=== PATIENT | male | born 1980 | race Caucasian/White ===

== ENCOUNTER 2024-10-15 05:59 | Emergency (ER) | payer OTHER, SELFPAY ==
[2024-10-15] VITALS (7 sets, daily range): BP systolic 131–151; BP diastolic 76–90; PULSE 64–71; RESP 18; TEMP 36.5–36.7; O2SAT 97–99; BMI 35.3
--- NOTE | 2024-10-15 | ECG_ITS ---
Test Reason : CP Blood Pressure : */* mmHG Vent. Rate : 61 BPM Atrial Rate : 61 BPM P-R Int : 178 ms QRS Dur : 86 ms QT Int : 406 ms P-R-T Axes : 54 16 11 degrees QTcB Int : 408 ms Normal sinus rhythm Normal ECG No previous ECGs available Referred By: Generic ED Physician Electronically Signed By: KEN BURDICK
--- NOTE | 2024-10-15 06:20 | PC.NURSE ---
Pt A&OX3, presented to ED for chest pain that radiates to the left shoulder, EKG done by triage tech, placed on quality assurance monitor chassis NSR, HR 67, VSS, no acute distress noted at this time, family at the bedside, call light given for safety
[2024-10-15 06:35] LABS: MANUAL DIFF FLAG NO
[2024-10-15 06:36] LABS: Basophils Absolute Auto 0.1 X10*3/uL (0.0-0.2); Basophils Percent Auto 0.7 % (0-2); Eosinophils Absolute Auto 0.2 X10*3/uL (0.0-0.4); Eosinophils Percent Auto 2.9 % (0-4); Hematocrit 41.9 % (42.0-52.0); Hemoglobin 14.7 g/dl (14.0-18.0); Imm Gran Abs Auto 0.01 X10*3/uL (0.00-0.03); Imm Gran Pct Auto 0.1 % (0.0-0.4); Lymphocytes Percent Auto 43.3 % (20-40); Mean Corpuscular HGB Conc 35.1 g/dl (31.0-36.0); Mean Corpuscular Hemoglobin 29.1 pg (27.0-33.0); Mean Platelet Volume 9.5 fL (9.4-12.4); Monocytes Absolute Auto 0.5 X10*3/uL (0.1-1.2); Monocytes Percent Auto 6.7 % (2-11); Neutrophils Absolute Auto 3.2 x10*3/uL (2.0-8.3); Neutrophils Percent Auto 46.3 % (45-73); Platelet Count 264 X10*3/uL (160-400); Red Blood Count 5.05 X10*6/uL (4.60-5.80); Red Cell Distribution Width 12.4 % (11.0-16.0)
[2024-10-15 06:51] LABS: Alanine Aminotransferase 71 U/L (0-40); Albumin Level 4.6 g/dL (3.5-5.0); Alkaline Phosphatase 102 U/L (39-117); Anion Gap 12 (12-20); Aspartate Amino Transferase 40 U/L (5-37); Bilirubin Total 0.5 mg/dL (0.0-1.0); Blood Urea Nitrogen 14 mg/dL (9-16); Calcium 9.7 mg/dL (8.4-10.2); Carbon Dioxide 22 mmol/L (22-29); Chloride 108 mmol/L (96-108); Creatinine Clr Calc Pharmacy 158.8; Estimated Glomerular Filt Rate > 60; Glucose Random 107 mg/dL (60-115); Potassium 4.4 mmol/L (3.3-5.1); Sodium 138 mmol/L (135-145); Total Protein 7.3 g/dL (6.5-8.0)
[2024-10-15 07:06] LABS: Troponin-I High Sensitivity < 2.7 ng/L (<3.5-35.0)
--- NOTE | 2024-10-15 07:21 | ED_ITS ---
HPI - Chest Pain General Chief Complaint: Chest Pain Stated Complaint: CP Time Seen by Provider: 10/15/24 07:13 Source: patient and family Mode of arrival: ambulatory Limitations: no limitations History of Present Illness ED Provider: DR. Lind HPI narrative: 44-year-old male came in for evaluation of chest pain that is started about 05:15 when he woke up from sleep, patient describes the pain as tightness and mid chest radiating to the left shoulder while he was at rest, patient took his blood pressure and was high called his PCP advised him to come to the ED for further evaluation. 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 Three weeks ago travel to [place] no lower extremity swelling or tenderness. No fever, no chills. During the exam patient still have 1/10 chest pain patient was given nitro and aspirin And will re-evaluate him later. Related Data Allergies Allergy/AdvReac Type Severity Reaction Status Date / Time environmental allergies Allergy Sneezing Verified 10/15/24 06:08 nut - unspecified Allergy Hives Verified 10/15/24 06:08 Review of Systems 2 Review of Systems: All other systems are reviewed and are negative Constitutional: Reports as per HPI and Reports no additional constitutional complaints Eyes: Reports as per HPI and Reports no additional eye complaints Reports system reviewed and no additional complaints, except as documented Cardiovascular: Reports as per HPI and Reports no additional cardiovascular complaints Respiratory: Reports as per HPI and Reports no additional respiratory complaints Gastrointestinal: Reports as per HPI and Reports no additional gastrointestinal complaints Genitourinary: Reports no additional female genitourinary complaints Musculoskeletal: Reports no additional musculoskeletal complaints Skin/Breast: Reports system reviewed and no additional complaints, except as docu Psychiatric: Reports no additional psychiatric complaints Endocrine: Reports no additional endocrine complaints Hematologic/Lymphatic: Reports no additional hematologic/lymphatic complaints Allergic/Immunologic: Reports no additional allergic/immunologic complaints Reports system reviewed and no additional complaints, except as documented and Reports Abnormal speech present [facility] Social History Social History Smoked in Last 30 Days: No Use of substances other than those prescribed or required for medical reasons: No Advance Directives: No Advance Directives Information Provided: Yes Physical Exam 2 Vital Signs: Vital Signs: Last Vital Signs Temp 98.0 F 10/15/24 07:01 Pulse 67 10/15/24 08:44 Resp 18 10/15/24 07:38 BP 131/81 10/15/24 08:44 Pulse Ox 97 10/15/24 07:01 O2 Del Method Room Air 10/15/24 07:01 BMI result Body Mass Index 35.3 Vital signs have been reviewed and appear to be correct. Blood pressure elevated. Heart rate normal. Respiratory rate normal. Temperature normal. Oxygen saturation normal. Appearance: Alert. Oriented X3. No acute distress. Head: Normal external exam. Normocephalic. Atraumatic. No Britt signs noted. No raccoon eyes noted Eyes: PERRLA. EOMI. Conjunctiva and sclera normal. Eyelids normal. ENT: TM's Normal. Pharynx normal. Uvula midline. Moist mucous membranes. No trismus noted. No drooling noted. No muffled voice noted. Neck: Normal inspection. Neck supple. FROM. No adenopathy. Thyroid Normal. No meningeal signs. No neck mass noted. CVS: Normal heart rate and rhythm. Heart sound normal. No murmurs noted. Pulses normal throughout. Respiratory: No respiratory distress. Painless inspiration. Breath sounds normal. No wheezes/rales/rhonchi noted. Chest nontender. No accessory muscle usage noted or decreased air movement noted. Abdomen: Soft and nontender. Bowel sounds normal in all 4 quadrants. No distention noted. No organomegaly noted. No visible injury noted. Back: No CVA tenderness. Full range of motion noted. Skin: Skin warm and dry. Normal skin color. Normal skin turgor. No rashes/lesions/lacerations noted. Extremities: No lower extremity edema. Extremities exhibit normal range of motion. Extremities nontender. Neuro: Oriented X 3. Cranial nerve exam: II-XII are grossly intact No motor deficit. No sensory deficit. Reflexes normal. 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 Blood pressure is 131/81 patient will have a soon follow-up with his PCP in regard follow-up on his blood pressure. Patient is stable to be discharged at this point. Time: 10:05 Medications Administered Discontinued Medications Generic Name Dose Route Start Last Admin Trade Name Antonietta PRN Reason Stop Dose Admin Aspirin 325 mg 10/15/24 07:20 10/15/24 07:32 Aspirin Enteric Coated 325 Mg Tablet.Dr ARMSTRONG 10/15/24 07:21 325 mg ONCE ONE Administration Nitroglycerin 0.4 mg 10/15/24 07:20 10/15/24 07:33 Nitroglycerin 0.4 Mg Tab.Subl SUBLINGUAL 10/15/24 07:21 0.4 mg ONCE ONE Administration Medical Decision Making Differential Diagnosis Differential Diagnoses: The differential diagnosis associated with the presentation includes ( Essential hypertension, emergent hypertension, ACS, pulmonary embolism, electrolyte derangement, severe anemia, anxiety.) Admission/Observation Consideration of admission/observation: Escalation of care including admission/observation considered Lab Data MDM Lab Attestation statement: I reviewed the patient's lab results. 10/15/24 06:28 10/15/24 06:28 Labs: Lab Results 10/15/24 10/15/24 10/15/24 Range/Units 06:28 07:49 09:03 WBC 7.0 (4.8-10.8) X10*3/uL RBC 5.05 (4.60-5.80) X10*6/uL Hgb 14.7 (14.0-18.0) g/dl Hct 41.9 L (42.0-52.0) % MCV 83.0 (80.0-98.0) fL MCH 29.1 (27.0-33.0) pg MCHC 35.1 (31.0-36.0) g/dl RDW 12.4 (11.0-16.0) % Plt Count 264 (160-400) X10*3/uL MPV 9.5 (9.4-12.4) fL Immature Gran % (Auto) 0.1 (0.0-0.4) % Neut % (Auto) 46.3 (45-73) % Lymph % (Auto) 43.3 H (20-40) % [place] % (Auto) 6.7 (2-11) % Eos % (Auto) 2.9 (0-4) % Baso % (Auto) 0.7 (0-2) % Lymph # (Auto) 3.0 (1.2-4.9) X10*3/uL [place] # (Auto) 0.5 (0.1-1.2) X10*3/uL Eos # (Auto) 0.2 (0.0-0.4) X10*3/uL Baso # (Auto) 0.1 (0.0-0.2) X10*3/uL Abs Immat Gran (auto) 0.01 (0.00-0.03) X10*3/uL Absolute Neuts (auto) 3.2 (2.0-8.3) x10*3/uL Absolute Nucleated RBC 0.000 (0.0-0.012) X10*3/uL Nucleated RBC % (auto) 0.0 (0.0-0.2) /100WBC D-Dimer High Sensitivty < 150 NG/ML Sodium 138 (135-145) mmol/L Potassium 4.4 (3.3-5.1) mmol/L Chloride 108 (96-108) mmol/L Carbon Dioxide 22 (22-29) mmol/L Anion Gap 12 (12-20) BUN 14 (9-16) mg/dL Creatinine 0.75 (0.5-1.4) mg/dL Estim Creat Clear Calc 158.8 Estimated GFR > 60 Random Glucose 107 (60-115) mg/dL Calcium 9.7 (8.4-10.2) mg/dL Total Bilirubin 0.5 (0.0-1.0) mg/dL AST 40 H (5-37) U/L ALT 71 H (0-40) U/L Alkaline Phosphatase 102 (39-117) U/L Troponin I High Sens < 2.7 < 2.7 (<3.5-35.0) ng/L Total Protein 7.3 (6.5-8.0) g/dL Albumin 4.6 (3.5-5.0) g/dL Independent Interpretation I performed an independent interpretation of an: EKG ( Normal sinus rhythm at 61, normal intervals, no ST-T changes, no EKG to compare.) and Plain X-Ray Discharge Plan Discharge Clinical Impression: Atypical chest pain, Essential hypertension Patient Disposition: Home, Self-Care Instructions: Chest Pain (ED) Print Language: Finnish
[2024-10-15] MEDS: Aspirin Enteric Coated 325 MG TABLET.DR PO (07:32)
[2024-10-15] MEDS: Nitroglycerin 0.4 MG TAB.SUBL SUBLINGUAL (07:33)
[2024-10-15 08:05] LABS: D Dimer High Sensitivity < 150 NG/ML
[2024-10-15 09:43] LABS: Troponin-I High Sensitivity < 2.7 ng/L (<3.5-35.0)
== END 2024-10-15 10:18 | disposition home or self-care (01) ==
PROVIDERS: Emergency Provider Emergency Medicine
DX: R07.89 Other chest pain (principal); M25.512 Pain in left shoulder; I10 Essential (primary) hypertension; Z79.899 Other long term (current) drug therapy
CPT/HCPCS: 36415; 80053; 84484; 85025; 85379; 93005; 99283; 99285

== ENCOUNTER → 2024-10-15 05:59 | Outpatient (BNV) | payer OTHER, SELFPAY | PROVIDERS: Emergency Provider Emergency Medicine; Visit Provider Internal Medicine | DX: R07.89 Other chest pain (principal) | CPT/HCPCS: 93010 ==

== ENCOUNTER 2025-03-01 17:28 | Emergency (ER) | payer OTHER, SELFPAY ==
--- NOTE | ~2025-03-01 | CT_ITS ---
CLINICAL HISTORY: R flank pain Exam: Unenhanced CT abdomen and pelvis with multiplanar reformats. Comparison: None. Findings: CT abdomen: Lung bases are clear. Liver is free of gross focal lesions and ductal dilatation. Gallbladder reveals cholelithiasis, without CT evidence of cholecystitis. Spleen appears unremarkable. Pancreas and adrenal glands appear unremarkable. Right kidney reveals mild hydronephrosis, down to the level of a 4 mm proximal right ureteral calculus (4; 453 and 6; 44). Additional punctate nonobstructing right renal calculus is present (4; 430). Left kidney reveals a heterogeneous solid-appearing and partially calcified upper pole lesion measuring up to 7.9 cm AP dimension (4; 357), and 5.8 cm craniocaudad dimension (6; 58). Findings concerning for solid mass such as renal cell carcinoma. No free intraperitoneal fluid or retroperitoneal masses or adenopathy. Abdominal aorta is normal caliber. Bowel loops reveal no abnormal wall thickening or distention. Minimal colonic diverticulosis is present, without CT evidence of diverticulitis. The appendix is unremarkable. CT pelvis: Prostate gland measures 4.3 cm transverse dimension. Urinary bladder is free of gross filling defects. No pelvic masses, fluid or adenopathy. Osseous structures reveal no destructive osseous lesions. Impression: 1. Mild right hydroureteronephrosis down to the level of a 4 mm proximal right ureteral calculus. Additional nonobstructing right renal calculus. 2. Large heterogeneous left renal lesion concerning for solid mass as described above, measuring up to 7.5 cm maximal dimension. Consider further characterization with nonemergent MRI or renal mass protocol CT. This document has been electronically signed by: Kristian Anderson MD on 03/01/2025 18:53:42
[2025-03-01 17:44] VITALS: BP 152/89; PULSE 84; RESP 16; TEMP 36.4; O2SAT 99; BMI 36.2
--- NOTE | 2025-03-01 17:45 | ED.GENADULT ---
HPI - General Adult General Chief complaint: Abdominal Pain Stated complaint: acute pain rt lower abd, nauseos, vomitting Time Seen by Provider: 03/01/25 18:30 Source: patient Mode of arrival: ambulatory Limitations: no limitations History of Present Illness ED Provider: Aniceto Mack HPI narrative: 44 yold male presents to the ED for right sided abdominal pain radiating to the back with nausea and vomitting that began this morning. patient denies any fever, chills, dysuria, or hematuria. Related Data Previous Rx's ?Medication ?Instructions ?Recorded naproxen 500 mg tablet 500 mg PO BID PRN pain #14 tabs 03/01/25 oxycodone 5 mg capsule 5 mg PO TID PRN pain #9 caps 03/01/25 tamsulosin 0.4 mg capsule (Flomax) 0.4 mg PO DAILY #7 caps 03/01/25 Allergies Allergy/AdvReac Type Severity Reaction Status Date / Time environmental allergies Allergy Sneezing Verified 03/01/25 17:48 nut - unspecified Allergy Hives Verified 03/01/25 17:48 Review of Systems Review of Systems: RIght sided abdominal pain/back pain Yes all other systems are reviewed and are negative Physical Exam ED Vital Signs: Vital Signs - 24 hr 03/01/25 17:44 03/01/25 19:01 Temperature 97.5 F 98.1 F Pulse Rate 84 88 Respiratory Rate 16 Blood Pressure 152/89 H 141/88 H Pulse Oximetry 99 95 Oxygen Delivery Method Room Air Room Air BMI result Body Mass Index 36.2 Const General: cooperative, healthy appearing, comfortable, no acute distress, well developed, alert, awake and Physically active Orientation/consciousness: patient oriented x3 HENMT Head: Yes normal to inspection, Yes No palpable skull fracture present, Yes normocephalic and Yes atraumatic Eyes General: appearance normal, both eyes and all related structures Neck Neck: Yes normal visual inspection, Yes full ROM, Yes no lymphadenopathy, Yes no meningeal signs, Yes trachea midline, Yes supple, No anterior neck swelling and No tender Chest Chest palpation & inspection: normal inspection of the chest and normal palpation of entire chest wall Resp Effort & Inspection: normal respiratory effort and able to speak in complete sentences Auscultation: clear to auscultation bilaterally Cardio Jugular venous distension: no JVD Heart sounds: S1 normal heart sound present and S2 normal heart sound present GI Palpation (GI): Tenderness to palpation present (GI) in the RLQ and in the RUQ, no guarding and not rigid General: Yes CVA tenderness (RIght) Back/Spine/Pelvis Back: CVA tenderness (RIght) and No back tenderness Skin General skin exam: no rashes or lesions noted, elasticity normal and turgor normal Neuro General: patient oriented x3, gait normal, tone normal, moves all extremities, Normal light touch and pain sensation, no meningeal signs, no focal motor deficits, CN's II-XI intact bilaterally and normal sensation to monofilament Extrem General: Yes normal to inspection, Yes full ROM and Yes capillary refill normal Psych Appearance: grossly normal, well kempt and not disheveled Course Course Course Narrative: Rapid medical examination performed in triage by Pretty Liang PA-C: Patient is a 44 year old assigned male at presenting to the emergency department with right lower quadrant abdominal pain. Detailed physical exam and review of systems are deferred to the rework machine operator. Labs and imaging ordered. Patient placed back in the waiting room pending room availability and results. Medications Administered Discontinued Medications Generic Name Dose Route Start Last Admin Trade Name Freq PRN Reason Stop Dose Admin Sodium Chloride 1,000 mls @ 999 mls/hr 03/01/25 19:22 03/01/25 20:36 Ns IV 03/01/25 20:22 Infused .Q1H1M STA Infusion Ketorolac Tromethamine 30 mg 03/01/25 19:22 03/01/25 19:35 Ketorolac Tromethamine 30 Mg/Ml Vial IVPUSH 03/01/25 19:23 30 mg ONCE ONE Administration Morphine Sulfate 4 mg 03/01/25 19:42 03/01/25 20:00 Morphine Sulfate 4 Mg/Ml Cartridge IVPUSH 03/01/25 19:43 Not Given ONCE ONE Protocol Medical Decision Making Medical Decision Making MDM Narrative: 44-year-old male presents to ED for right-sided abdominal pain starting today with nausea and vomiting. Abdominal CT scan shows kidney stones with hydronephrosis. Cat scan also shows gallstone without cholecystitis. Cat scan also shows right kidney mass. Patient's kidney functions normal. Urine negative for UTI. Kidney stones fall mm she will be able to passed. Patient informed to follow-up with urology. Patient explained worrisome signs and informed to return to the ED immediately. Not suspecting urosepsis, acute kidney injury, cholangiocarcinoma, any other life-threatening etiology. Patient made aware of renal mass and necessary follow up. Differential Diagnosis Differential Diagnoses: The differential diagnosis associated with the presentation includes (Kidney stones, appendicitis, cholecystitis) Admission/Observation Consideration of admission/observation: Escalation of care including admission/observation considered Lab Data MDM Lab Attestation statement: I reviewed the patient's lab results. 03/01/25 17:54 03/01/25 17:54 Labs: Lab Results 03/01/25 03/01/25 Range/Units 17:54 19:39 WBC 10.5 (4.8-10.8) X10*3/uL RBC 5.25 (4.60-5.80) X10*6/uL Hgb 15.2 (14.0-18.0) g/dl Hct 45.5 (42.0-52.0) % MCV 86.7 (80.0-98.0) fL MCH 29.0 (27.0-33.0) pg MCHC 33.4 (31.0-36.0) g/dl RDW 12.4 (11.0-16.0) % Plt Count 283 (160-400) X10*3/uL MPV 9.2 L (9.4-12.4) fL Immature Gran % (Auto) 0.4 (0.0-0.4) % Neut % (Auto) 70.8 (45-73) % Lymph % (Auto) 21.5 (20-40) % [place] % (Auto) 5.1 (2-11) % Eos % (Auto) 1.6 (0-4) % Baso % (Auto) 0.6 (0-2) % Lymph # (Auto) 2.3 (1.2-4.9) X10*3/uL [place] # (Auto) 0.5 (0.1-1.2) X10*3/uL Eos # (Auto) 0.2 (0.0-0.4) X10*3/uL Baso # (Auto) 0.1 (0.0-0.2) X10*3/uL Abs Immat Gran (auto) 0.04 H (0.00-0.03) X10*3/uL Absolute Neuts (auto) 7.4 (2.0-8.3) x10*3/uL Absolute Nucleated RBC 0.000 (0.0-0.012) X10*3/uL Nucleated RBC % (auto) 0.0 (0.0-0.2) /100WBC Sodium 143 (135-145) mmol/L Potassium 4.4 (3.3-5.1) mmol/L Chloride 107 (96-108) mmol/L Carbon Dioxide 25 (22-29) mmol/L Anion Gap 15 (12-20) BUN 9 (9-16) mg/dL Creatinine 0.80 (0.5-1.4) mg/dL Estim Creat Clear Calc 150.8 Estimated GFR > 60 Random Glucose 100 (60-115) mg/dL Calcium 10.5 H D (8.4-10.2) mg/dL Magnesium 2.2 (1.6-2.6) mg/dL Total Bilirubin 0.3 (0.0-1.0) mg/dL AST 40 H (5-37) U/L ALT 62 H (0-40) U/L Alkaline Phosphatase 110 (39-117) U/L Total Protein 7.9 (6.5-8.0) g/dL Albumin 4.9 (3.5-5.0) g/dL Urine Color Yellow Urine Appearance Clear Urine pH 6.0 (5.0-9.0) Ur Specific [place] 1.015 (1.005-1.025) Urine Protein Negative (Neg-Trace) mg/dL Urine Glucose (UA) Negative (Negative) mg/dL Urine Ketones Negative (Negative) mg/dL Urine Blood Moderate (2+) H (Negative) Urine Nitrite Negative (Negative) Ur Leukocyte Esterase Negative (Negative) Urine RBC >20 H (0-2) /HPF Urine WBC 0-5 (0-5) /HPF Ur Squamous Epith Cells 0-2 (0-2) /HPF Urine Bacteria None Seen (None Seen) Hyaline Casts 0-2 (0-2) /LPF Independent Interpretation I performed an independent interpretation of an: CT Scan Radiology Impression Discussion of test interpretation with radiology: I have reviewed the radiologist's reading. Independent Historian Clinical information obtained from an independent historian. History obtained from or confirmed by: Other (Patient) Prescription Management I considered prescription management with: Pain Medication Discharge Plan Discharge Clinical Impression: Calculus, ureter, Gallstones Patient Disposition: Home, Self-Care Instructions: Gallstones (ED), Renal Colic (ED), Ureteral Stones (ED) Additional Instructions: Recommend follow up with primary care provider. Return to the ED immediately for any testicular pain, nausea, vomiting, abdominal pain, fever, chills, flank pain, blood in urine, weakness, dizziness, or any other concerning symptoms. Ordering Physician: Pretty Liang Date of Service: 03/01/25 Procedure(s): CT abdomen pelvis wo IV con Accession Number(s): [id number] cc: Pretty Liang; TOBIAS HALLMAN MD~ Report Number: [id number]: Total DLP = 928.00 mGy-cm Reason for Exam: R flank pain CLINICAL HISTORY: R flank pain Exam: Unenhanced CT abdomen and pelvis with multiplanar reformats. Comparison: None. Findings: CT abdomen: Lung bases are clear. Liver is free of gross focal lesions and ductal dilatation. Gallbladder reveals cholelithiasis, without CT evidence of cholecystitis. Spleen appears unremarkable. Pancreas and adrenal glands appear unremarkable. Right kidney reveals mild hydronephrosis, down to the level of a 4 mm proximal right ureteral calculus (4; 453 and 6; 44). Additional punctate nonobstructing right renal calculus is present (4; 430). Left kidney reveals a heterogeneous solid-appearing and partially calcified upper pole lesion measuring up to 7.9 cm AP dimension (4; 357), and 5.8 cm craniocaudad dimension (6; 58). Findings concerning for solid mass such as renal cell carcinoma. No free intraperitoneal fluid or retroperitoneal masses or adenopathy. Abdominal aorta is normal caliber. Bowel loops reveal no abnormal wall thickening or distention. Minimal colonic diverticulosis is present, without CT evidence of diverticulitis. The appendix is unremarkable. CT pelvis: Prostate gland measures 4.3 cm transverse dimension. Urinary bladder is free of gross filling defects. No pelvic masses, fluid or adenopathy. Osseous structures reveal no destructive osseous lesions. Impression: 1. Mild right hydroureteronephrosis down to the level of a 4 mm proximal right ureteral calculus. Additional nonobstructing right renal calculus. 2. Large heterogeneous left renal lesion concerning for solid mass as described above, measuring up to 7.5 cm maximal dimension. Consider further characterization with nonemergent MRI or renal mass protocol CT. This document has been electronically signed by: Kristian Anderson MD on 03/01/2025 18:53:42 Prescriptions: New tamsulosin [Flomax] 0.4 mg capsule 0.4 mg PO DAILY Qty: 7 0RF naproxen 500 mg tablet 500 mg PO BID PRN (Reason: pain) Qty: 14 0RF oxycodone 5 mg capsule 5 mg PO TID PRN (Reason: pain) Qty: 9 0RF Rx Instructions: Partial Fill upon patient request. side effect is drowsiness. Do not take at work or while driving Referrals: [facility] [place] General Surgeons [Provider Group, General Surgery] - 2 days Referral Note: Gallstone Clinical Impression: Gallstones [facility] [place] Urology Services [Provider Group, Urology] - 2 days Referral Note: Ureter stone Clinical Impression: Calculus, ureter Tobias Hallman MD [Primary Care Provider, Internal Medicine] - 2 days Referral Note: Kidney stones, gallstones, Lesion on right kidney Clinical Impression: Calculus, ureter; Gallstones Stand Alone Forms: Work/School Release Interventions: ED Discharge Assessment Last Done: 03/01/25 21:04 Discharge Date/Time: 03/01/25 21:06 Print Language: Mongolian
[2025-03-01 17:58] LABS: MANUAL DIFF FLAG NO
[2025-03-01 18:07] LABS: Hematocrit 45.5 % (42.0-52.0); Hemoglobin 15.2 g/dl (14.0-18.0); Imm Gran Abs Auto 0.04 X10*3/uL (0.00-0.03); Imm Gran Pct Auto 0.4 % (0.0-0.4); Lymphocytes Absolute Auto 2.3 X10*3/uL (1.2-4.9); Mean Corpuscular HGB Conc 33.4 g/dl (31.0-36.0); Mean Corpuscular Hemoglobin 29.0 pg (27.0-33.0); Mean Corpuscular Volume 86.7 fL (80.0-98.0); NRBC Abs Auto 0.000 X10*3/uL (0.0-0.012); NRBC Pct Auto 0.0 /100WBC (0.0-0.2); Platelet Count 283 X10*3/uL (160-400); Red Blood Count 5.25 X10*6/uL (4.60-5.80); White Blood Count 10.5 X10*3/uL (4.8-10.8)
[2025-03-01 18:14] LABS: Alanine Aminotransferase 62 U/L (0-40); Albumin Level 4.9 g/dL (3.5-5.0); Alkaline Phosphatase 110 U/L (39-117); Anion Gap 15 (12-20); Aspartate Amino Transferase 40 U/L (5-37); Blood Urea Nitrogen 9 mg/dL (9-16); Calcium 10.5 mg/dL (8.4-10.2); Carbon Dioxide 25 mmol/L (22-29); Chloride 107 mmol/L (96-108); Creatinine Clr Calc Pharmacy 150.8; Estimated Glomerular Filt Rate > 60; Magnesium 2.2 mg/dL (1.6-2.6); Potassium 4.4 mmol/L (3.3-5.1); Sodium 143 mmol/L (135-145); Total Protein 7.9 g/dL (6.5-8.0)
[2025-03-01 19:01] VITALS: BP 141/88; PULSE 88; TEMP 36.7; O2SAT 95
--- OUTSIDE RECORDS SUMMARY | 2025-03-01 19:24 | XMS_ITS | Clinical Summary ---
Author Organization [facility] Address [address] [place] [phone] Phone Care Team Providers Care Memory Care Program Resident Name Role Phone Geovanny Hallman MD Primary Care Provider Allergies Active Allergy Reactions Criticality Noted Date Comments Peanut 09/13/2023 Other 07/21/2018 Environmental allergies Tree Nut GI Upset,Hives,Itching,Swel ling,Throat Tightness Medium 10/05/2024 Medications omeprazole (PRILOSEC) 20 MG tablet 1 tablet Orally as needed Active loratadine (CLARITIN) 10 mg tablet Take 1 tablet by mouth as needed. Active FLUoxetine (PROZAC) 20 MG capsuleIndicati ons:Suicidal ideation TAKE 1 CAPSULE BY MOUTH EVERY DAY 90 capsule 3 05/18/2022 Active Active Problems Problem Noted Date Diagnosed Date Elevated BP without diagnosis of hypertension Assessment & Plan (01/24/2025 9:37 PM EDT): He has been taking decongestants which could explain his elevated blood pressure, will monitor. Assessment & Plan (10/08/2024 7:09 PM EDT): We discussed measures to help reduce his blood pressure and will follow up in about 6 weeks. Orders: CBC; Future Comprehensive metabolic panel; Future Hemoglobin A1c; Future Lipid panel; Future TSH with reflex; Future Left knee pain 10/08/2024 Assessment & Plan (10/08/2024 7:09 PM EDT): There is likely a component of overuse injury. Will monitor. Snoring 04/05/2023 Assessment & Plan (04/05/2023 12:34 PM EST): He would prefer to have an in lab sleep study with the hope of a split night test as he is confident that he has sleep apnea. He will discuss this with sleep medicine. Class 1 obesity with body ma ss index (BMI) of 34.0 to 34.9 in adult 07/03/2021 Assessment & Plan (01/24/2025 9:37 PM EDT): He remains very physically active with his work. Will continue to monitor his blood pressure. Assessment & Plan (09/13/2023 3:08 PM EDT): Weight has been recently stable, BMI 34.65 based on pt reported current weight. At high risk for severe case of COVID, will treat with Paxlovid - see below. Assessment & Plan (07/03/2021 1:54 PM EDT): He would like to see a book trimmer to discuss his diet. He was given information for Jenny Mccoy and Suzy Torres today. Major depressive disorder with single episode, i n remission 12/13/2020 Assessment & Plan (01/24/2025 9:37 PM EDT): Continue fluoxetine. Assessment & Plan (07/03/2021 1:54 PM EDT): He is doing well on his current dose of fluoxetine. Will maintain there. Discussed that he can remain on this dose for years if he wishes. Resolved Problems Problem Noted Date Diagnosed Date Resolved Date COVID-19 09/13/2023 01/24/2025 Assessment & Plan (09/13/2023 3:07 PM EDT): Positive home COVID antigen test w/ symptoms: head congestion, fever and body aches. At high risk for severe symptoms of COVID given obesity. Immunized for COVID and boosted. Meets criteria for oral antiviral tx, risks/benefits/side effects reviewed. ? High risk for drug-drug interactions w/ Paxlovid. Medication list reviewed, possible slight interaction with fluoxetine but given low dose of SSRI and brief antiviral tx, no adjustments necessary. No history of kidney disease, no dosage adjustment necessary. ? They are not so unwell as to need to go to the ER immediately. No s/sx of hypoxia, no indications at this time for an in-office visit. Reviewed indications for urgent eval/ED visit. Continue supportive care, rest, plenty of oral fluids, cough/deep breathing. Follow-up as needed for worsening symptoms, if fever worsens or persists, or failure to improve. Impacted cerumen of right ear 08/10/2021 04/02/2023 Assessment & Plan (2021 10:21 AM EDT): Continued pressure/muffled sound from right ear with some ringing. Likely secondary to impacted cerumen. Irrigation provided- improved symptoms following. Advised use of debrox on other ear as he has some hard wax there also. Assessment & Plan (08/10/2021 11:21 AM EDT): Suspect fullness secondary to impaction. Red flags reviewed. Irrigation attempted with minimal improvement. Will trial debrox and return in 5 days. Given rx for amox in case of fever or worsening pain in that time. dvised to take full course if started. Encounters Date Type Department Care Team Description 01/20/2025 4:00 PM EDT Office Visit [facility] [address] [place] [address] Dr [place], [place] [id number] Geovanny Hallman MD Encounter for general adult medical examination with abnormal findings (Primary Dx); Elevated BP without diagnosis of hypertension; Class 2 obesity due to excess calories without serious comorbidity with body mass index (BMI) of 37.0 to 37.9 in adult; Major depressive disorder with single episode, in remission from Last 3 Months Immunizations Immunization Administration Dates Next Due COVID-19 (Pre-02/11) Pfizer Vaccine, mRNA, PF ,06/12/2020 INFLUENZA, SPLIT VIRUS, TRIVALENT PF 02/05/2024 INFLUENZA, SPLIT VIRUS, TRIVALENT W/ PRESERVATIV E IM 08/03/2010 Influenza Quadrivalent MDCK Preservative Free IM 01/22/2023 Influenza Trivalent MDCK Preservative Free IM Td (adult),2 Lf Tetanus Toxoid, PF, Adsorbed 12/2019 Family History Medical History Relation Comments CV disease Father Heart attack Father x3, 1st PR befor e 50 Hypertension Father Sleep apnea Father CV disease Maternal Grandmother Heart attack Maternal Grandmother Meniere's disease Mother Diabetes mellitus Paternal Aunt CV disease Paternal Grandfather Diabetes mellitus Paternal Grandfather Heart attack Paternal Grandfather x2 Hypertension Paternal Grandfather Stroke Paternal Grandfather x2 Relation Status Comments Father Maternal Grandmother Mother Paternal Aunt Paternal Grandfather Social History Tobacco Use Types Packs/Day Years Used Date Smoking Tobacco: Never Smokeless Tobacco: Never Tobacco Cessation:Counseling Given: Not Answered Alcohol Use Standard Drinks/Week Comments Yes 0 (1 standard drink = 0.6 oz pur e alcohol) socially/rare Child or Family Care Answer Date Record ed Do you have problems with on e of the following making it difficult for you to work, study, or receive health care? No 01/19/2025 Education Answer Date Recorded Are you interested in help w ith more adult education (for example, completing high school, GED, job training, learning the [place] language, technical skills, or developing parenting skills)? No 01/19/2025 Are you concerned about learning? Not on file 01/19/2025 No 01/19/2025 Yes 01/19/2025 Food Answer Date Recorded Within the past 6 months we worried whether our food would run out before we got money to buy more. Never True 01/19/2025 Within the past 6 months the food we bought just didn't last and we didn't have enough money to get more. Never True Residential Stability Answer Date Recor ded What is your housing situation today? I have bogdan sing 01/19/2025 How many times have you move d in the past 12 months? Zero (I did not move) 01/19/2025 Paying for Meds Answer Date Recorded Do you have trouble paying for medicines? No 01/19/2025 Paying Utility Bills Answer Date Record ed Do you have trouble paying your heating or elect ricity bill? No 01/19/2025 Transportation Answer Date Recorded Has the lack of transportati on kept you from medical appointments or from getting medications? No 01/19/2025 Unemployment Answer Date Recorded Are you currently unemployed or working on a part-time or temporary basis, and looking for work? No 01/19/2025 Digital Access Answer Date Recorded No 01/19/2025 Yes 01/19/2025 Do you have reliable internet access at home? Ye s 01/19/2025 Do you have a device (e.g., phone, tablet, computer) with a working camera? Yes 01/19/2025 Intimate Partner Violence Answer Date R ecorded Denied Basic Needs Not on file 01/19/2025 In the past 12 months have y ou been in a relationship with a person who hurts, threatens, or tries to control you? No 01/19/2025 Worried food would run out Not on file 01/19 In the past 12 months have y ou been in a relationship with a person who hurts, threatens, or tries to control you? 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 Not on file Not on file Not on file Last Filed Vital Signs Vital Sign Reading Time Taken Comments Blood Pressure 124/96 01/20/2025 4:13 PM EDT Pulse 95 01/20/2025 4:10 PM EDT Temperature 36.3 C (97.4 F) 01/20/2025 4:10 PM EDT Respiratory Rate - - Oxygen Saturation 95% 01/20/2025 4:10 PM EDT Inhaled Oxygen Concentration - - Weight 115.4 kg (254 lb 6.4 oz) 01/20/2025 4:10 PM EDT Height 176.5 cm (5' 9.49 ) 04/02/2023 3:48 PM ES T Body Mass Index 37.04 04/02/2023 3:48 PM EST Plan of Treatment Health Maintenance Due Date Last Done Comments HEPATITIS C SCREENING 08/16/1999 HIV ONE-TIME SCREENING (18-65 YEARS) 08/16/1999 DEPRESSION SCREENING 01/19/2026 01/19/2025, 11/02/19 21 SCREENING FOR DIABETES 10/08/2027 10/07/2024, 2024 Adult Td,Tdap Booster 09/28/2029 09/29/2019 LIPID PANEL 10/07/2029 10/07/2024 COVID-19 VACCINE Completed 01/17/2025, , 01/28/2023, Additional history exists INFLUENZA VACCINE Completed 01/17/2025, , 01/22/2023, Additional history exists SMOKING STATUS SCREENING (Once After 26 Yrs) Completed 01/20/2025 HEPATITIS A VACCINES Aged Out No long er eligible based on patient's age to complete this topic HIB VACCINES Aged Out No longer eligi ble based on patient's age to complete this topic MENINGOCOCCAL VACCINES (ACWY) Aged Out No longer eligible based on patient's age to complete this topic MENINGOCOCCAL VACCINES (B) Aged Out N o longer eligible based on patient's age to complete this topic PNEUMOCOCCAL VACCINES (0-49 years) Aged Out No longer eligible based on patient's age to complete this topic Medical Devices Not on file Procedures Procedure Name Priority Date/Time Associated Diagnosis Comments LIPID PANEL Routine 10/07/2024 7:21 AM EDT Elevated BP without diagnosis of hypertension from Last 3 Months or Most Recently Relevant to Health Maintenance Results * (ABNORMAL) Lipid panel (10/07/2024 7:21 AM EDT) HDL 54 mg/dL [facility] Comment: Interpretation <40 mg/dL: Low HDL cholesterol (major risk factor for CHD) Greater than or equal to 60 mg/dL: High HDL cholesterol ( negative risk factor for CHD) HDL - cholesterol is affected by a number of factors, e.g. smoking, excerise, hormones, sex and age. CHOLESTEROL 169 0 - 240 mg/dL [facility] TRIGLYCERIDES 162(H) 30 - 160 mg/dL [facility] LDL 83 50 - 129 mg/dL [facility] Comment: LDL levels in terms of risk for coronary heart disease: <100 mg/dL: Optimal 100-129 mg/dL: Near or above optimal 130-159 mg/dL: Borderline high 160-189 mg/dL: High >190 mg/dL: Very High CARDIAC RISK RATIO 3.1(L) 3.4 - 5.0 C [facility] Blood 10/07/2024 7:21 AM EDT 10/07/2024 7:28 AM EDT us Geovanny Hallman MD LAB BLOOD BKR ORDERABLES Fi nal Result [address] [id number] from Last 3 Months or Most Recently Relevant to Health Maintenance Insurance [facility] Member Subscriber Plan / Payer (Ef fective 2024-Present) Name:Henri Waggoner Relation to Subscriber:Self Name:Henri Waggoner Payer ID:[id number] (NAIC) Type:POS Address: [place] [id number] [facility] Member Subscriber Plan / Payer (Ef fective 2024-Present) Name:Henri Waggoner Relation to Subscriber:Self Name:Henri Waggoner Payer ID:[id number] (NAIC) Type:POS Address: [address] [facility] Care Teams Memory Care Program Resident Relationship Specialty Start Date End Date Geovanny Hallman MD [address] [place] [address], [address] [place] [address] [email or web address] PCP - General 04/25/17 Additional Source Comments The information contained in this document represents components of the legal health record. It is not the complete legal health record.[facility]
[2025-03-01 19:47] LABS: Appearance Urine Clear; Glucose Urine UA Negative (Negative); PH 6.0 (5.0-9.0); Specific Gravity - Urine 1.015 (1.005-1.025); UMIC TRIGGER UACC YES
[2025-03-01 21:04] VITALS: BP 138/82; PULSE 85; RESP 16; TEMP 36.7; O2SAT 99
== END 2025-03-01 21:06 | disposition home or self-care (01) ==
PROVIDERS: Physician Assistant Medical; Emergency Provider Emergency Medicine; PCP Internal Medicine
DX: K80.20 Calculus of gallbladder without cholecystitis without obstruction (principal); N13.2 Hydronephrosis with renal and ureteral calculous obstruction
CPT/HCPCS: 36415; 74176; 80053; 81001; 83735; 85025; 96361; 96374; 99284; J1885

== ENCOUNTER → 2025-03-01 17:46 | Outpatient (BNV) | payer OTHER, SELFPAY | PROVIDERS: Emergency Provider Emergency Medicine; PCP Internal Medicine; Visit Provider Radiology Diagnostic Radiology | DX: N13.2 Hydronephrosis with renal and ureteral calculous obstruction (principal); N28.89 Other specified disorders of kidney and ureter | CPT/HCPCS: 74176 ==

== ENCOUNTER 2025-03-11 08:46 | Outpatient (AMB) | payer OTHER, SELFPAY ==
[2025-03-11 09:04] VITALS: BP 142/69; PULSE 74; BMI 36.9
--- NOTE | 2025-03-11 09:04 | MHC.OFFVIS ---
Vital Signs 03/11/25 09:04 Height 5 ft 9 in Weight 250 lb BMI 36.9 BP 142/69 H Blood Pressure Location Rt brachial Position Sitting Pulse 74 Intake Visit Reasons: gallstones Intake Note: Patient presents for [facility] [place] follow-up for gallstones. Pt c/o; on and off RUQ pain. DI: 03/01/2025 Abd/pelvis CT Assistant Restaurant General Manager Required: No Accompanied by: Self / Same As Patient Allergies environmental allergies Allergy (Verified 03/11/25 09:06) Sneezing nut - unspecified Allergy (Verified 03/11/25 09:06) Hives HPI HPI gallstones: Details: 44-year-old male referred for gallstones. He went to the ER last 03/01/2025 because of right flank pain /right-sided abdominal pain He had a CAT scan he had a CAT scan done there showing hydronephrosis proximal right ureteral calculus and additional punctate nonobstructing right renal stone. His pain resolved when he was in the ER. He was also noted to have gallstones on the CAT scan. He was therefore referred to me He denies any further episodes. He denies any GI complaints currently. He does state that the pain at that time seemed to be more towards the right side/ side right flank area has a than the subcostal region right. [facility] Medical History (Updated 03/11/25 @ 09:30 by Kiet Iyer MD) Gallstone Testicular torsion Family History Father Throat cancer Social History Alcohol intake: current Alcohol intake frequency: holidays/special occasions only Alcohol type: beer Patient Tobacco Use Status: Never used Tobacco Review of Systems Const Denies chills and Denies fever(s) Card Denies chest pain, Denies dyspnea and Denies dyspnea on exertion Resp Denies cough, Denies dyspnea and Denies dyspnea on exertion GI Denies hematochezia and Denies change in bowel habits Denies hematuria and Denies difficulty urinating Musc Denies back pain and Denies limited range of motion Neuro Denies focal weakness and Denies convulsions Psych Denies depression and Denies mood swings Physical Exam Vital Signs: Last Vital Signs Pulse 74 03/11/25 09:04 BP 142/69 H 03/11/25 09:04 BMI result Body Mass Index 36.9 Const General: comfortable and no acute distress Orientation/consciousness: patient oriented x3 Neck Neck: Yes no lymphadenopathy Resp Auscultation: clear to auscultation bilaterally Cardio Rhythm: regular rhythm GI Palpation (GI): Soft to palpation, nontender and no guarding Neuro General: patient oriented x3 Assessment & Plan Assessment & Plan (1) Gallstone: Code(s): K80.20 - Calculus of gallbladder without cholecystitis without obstruction Category: Medical Plan: He had gallstones on a CAT scan done last 03/01/2025 in the ED for right flank pain. He however does have hydronephrosis in the right kidney with a stone in the ureter. This has likely source of his pain at that time. Currently denies any right upper quadrant pain or tenderness I told him that it appears that his symptoms are more likely to be secondary to his ureteral stone rather than his gallstone. I did explain to him symptoms of gallbladder disease including I upper quadrant pain and GI symptoms. I advised him to come back to the office down the line if he has these symptoms, especially after his ureteral stone this has been taken care of. 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 Medications: Discontinued naproxen Discontinued Reason: Patient Completed Course 500 mg PO BID PRN 14 tabs 0RF pain oxycodone Partial Fill upon patient request. side effect is drowsiness. Do not take at work or while driving Discontinued Reason: Patient Refused 5 mg PO TID PRN 9 caps 0RF pain Coding Level of Care Code New Pt Level 3 (74865) Diagnoses Gallstone K80.20
== END 2025-03-11 09:26 | disposition home or self-care (01) ==
PROVIDERS: PCP Internal Medicine; Visit Provider Surgery
DX: K80.20 Calculus of gallbladder without cholecystitis without obstruction (principal)
CPT/HCPCS: 99203

== ENCOUNTER 2025-03-11 10:32 | Outpatient (AMB) | payer OTHER, SELFPAY ==
--- NOTE | 2025-03-11 10:39 | MHC.OFFVIS ---
Intake Visit Reasons: Kidney stones, hydroureteronephrosis Intake Note: New Patient is present for Hydroureteronephrosis c/o frequent urination he is drinking more water Urology Rx:None Blood Thinners:none Imaging completed: Abd/Pelvis CT 03/01/25 Rehab Spec Required: No Accompanied by: Self / Same As Patient Allergies environmental allergies Allergy (Verified 03/11/25 10:40) Sneezing nut - unspecified Allergy (Verified 03/11/25 10:40) Hives HPI Comments Details: Henri is a pleasant male. He is a patient of Dr. Hallman. He is seen for the following urologic conditions - nephrolithiasis - renal mass Discussed imaging findings Printed information provided Plan contrast enhanced study Probable renal cancer Incidental finding during evaluation for kidney stones CT - Left kidney reveals a heterogeneous solid-appearing and partially calcified upper pole lesion measuring up to 7.9 cm AP dimension (4; 357), and 5.8 cm craniocaudad dimension (6; 58) No family history of significant consequence Nephrolithiasis Elevated calcium Distal right ureteric stone Grandmother has stone PENDING SALE TO [facility] Medical History (Updated 03/11/25 @ 11:08 by Brendan Cobos MD) Gallstone Testicular torsion Family History Father Throat cancer Social History Alcohol intake: current Alcohol intake frequency: holidays/special occasions only Alcohol type: beer Patient Tobacco Use Status: Never used Tobacco Review of Systems Const Denies chills and Denies fever(s) Card Reports no additional complaints and Denies syncope Resp Denies cough GI Denies abdominal pain and Denies heartburn Reports as per HPI and Denies change in libido Neuro Denies syncope Psych Denies change in libido Endo Denies change in libido Physical Exam Const General: cooperative, healthy appearing, comfortable and no acute distress Orientation/consciousness: patient oriented x3 HEENT Face and sinus: Yes normal facial exam Mouth: moist mucous membranes Neck Neck: Yes normal visual inspection, Yes full ROM and Yes trachea midline Chest Chest palpation & inspection: normal inspection of the chest Resp Effort & Inspection: normal respiratory effort, able to speak in complete sentences and no respiratory distress GI Inspection: Yes normal to inspection Back/Spine/Pelvis Cervical Spine: normal cervical lordosis Thoracic/Lumbar Spine: thoracic and lumbar spine normal to inspection Skin General skin exam: no rashes or lesions noted Neuro General: patient oriented x3, gait normal, tone normal and moves all extremities Extrem General: Yes normal to inspection and Yes capillary refill normal Results AMB Urinalysis, Automated UA Leukoctes 0 Tana/uL Last Edit by Emily Navas [facility] on 03/11/25 10:56 UA Nitrite Negative [facility] on 03/11/25 10:56 UA Urobilinogen 0.2 mg/dL Last Edit by [facility], [facility] on 03/11/25 10:56 UA Protein 0 mg/dL Last Edit by [facility], [facility] on 03/11/25 10:56 UA pH 6.0 Last Edit by [facility], [facility] on 03/11/25 10:56 UA Blood 0 Giles/uL Last Edit by [facility], [facility] on 03/11/25 10:56 UA Specific [place] 1.015 Last Edit by Emily Yosef, [facility] on 03/11/25 10:56 UA Ketone Negative Last Edit by [facility], [facility] on 03/11/25 10:56 UA Bilirubin 0 mg/dL Last Edit by [facility], [facility] on 03/11/25 10:56 UA Glucose 0 mg/dL Last Edit by [facility], [facility] on 03/11/25 10:56 Results Reviewed Results Reviewed: Laboratory Last Values Urine pH (Auto) 6.0 03/11/25 10:55 Specific [place] (Auto) 1.015 03/11/25 10:55 Urine Protein (Auto) 0 mg/dL 03/11/25 10:55 Glucose (UA)(Auto) 0 mg/dL 03/11/25 10:55 Urine Ketones (Auto) Negative 03/11/25 10:55 Urine Blood (Auto) 0 Giles/uL 03/11/25 10:55 Urine Nitrite (Auto) Negative 03/11/25 10:55 Urine Bilirubin (Auto) 0 mg/dL 03/11/25 10:55 Urine Urobilinogen (Auto) 0.2 mg/dL 03/11/25 10:55 Leukocyte Esterase (Auto) 0 Tana/uL 03/11/25 10:55 Assessment & Plan Assessment & Plan (1) Renal cancer: Code(s): C64.9 - Malignant neoplasm of unspecified kidney, except renal pelvis Category: Medical (2) Nephrolithiasis: Code(s): N20.0 - Calculus of kidney Category: Medical Plan Plan imaging Orders: Orders CT abdomen pelvis wo/w IV con Today C64.9 - Malignant neoplasm of unspecified kidney, except renal pelvis Parathyroid Hormone Intact Today N20.0 - Calculus of kidney Phosphorus Today N20.0 - Calculus of kidney Uric Acid Today N20.0 - Calculus of kidney Vitamin D 25-OH Total Today N20.0 - Calculus of kidney Calcium Today N20.0 - Calculus of kidney Magnesium Today N20.0 - Calculus of kidney Patient Instructions: This note is constructed using voice recognition software. While every effort has been made to ensure accuracy shift production associate errors may have been included. Imaging studies, laboratory and physical exam results were discussed and reviewed in detail. No major barriers to patient understanding were identified. An opportunity to ask questions regarding the treatment plan was provided. All questions were answered. The patient expressed understanding and agreement with the above treatment plan. The patient is aware they should contact our office by phone for worsening of their current condition or the appearance of new urologic symptoms. Compliance is encouraged with any medications and followup testing that is ordered. It is a privilege to participate in the urologic care of your patient. If you have any questions or concerns regarding treatment for the above conditions, or other urologic issues, please do not hesitate to contact me. The office telephone contact is [phone]. Sincerely, Dr Brendan Cobos MD, [facility] - Urology Compassionate Specialist Care for the Genitourinary System Coding Level of Care Code New Pt Level 4 (70019) Diagnoses Renal cancer C64.9 Nephrolithiasis N20.0
== END 2025-03-11 11:12 | disposition home or self-care (01) ==
PROVIDERS: PCP Internal Medicine; Visit Provider Urology
DX: C64.9 Malignant neoplasm of unspecified kidney, except renal pelvis (principal); N20.0 Calculus of kidney
CPT/HCPCS: 99204

== ENCOUNTER 2025-03-25 09:10 | Outpatient (REF) | payer OTHER, SELFPAY ==
--- OUTSIDE RECORDS SUMMARY | 2025-03-25 10:03 | XMS_ITS | Encounter Summary ---
Author Organization [facility] Address [address] [place] [address] Phone Care Team Providers Care Outside Sales Associate Name Role Phone Geovanny Hallman MD Primary Care Provider [phone]- [phone] Reason for Visit * Reason Onset Date Comments Appointment 03/02/2025 ER follow up Encounter Details Date Type Department Care Team (Late st Contact Info) Description 03/02/2025 Telephone [facility] [address] [place] [address] Geovanny Hallman MD [address] [facility], 2nd [place] [address] [email or web address] Appointment (ER follow up) Social History Tobacco Use Types Packs/Day Years Used Date Smoking Tobacco: Never Smokeless Tobacco: Never Alcohol Use Standard Drinks/Week Comments Yes 0 [...] high school, GED, job training, learning the [place] Citizen language, technical skills, or developing parenting skills)? [...] your housing situation today? 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 2.Virtual or in-person appointment: In-Person 3.Information related to the patient ER/ED visit: A. Facility Name:? [facility] B. Date of ED Visit: 03/01/25 C. Reason for visit (Diagnosis/Symptoms):? lesions on gallbladder 4.Is the record of the Emergency Department visit in the chart: YES/NO: no? a. IF NOT, patient was instructed to have records faxed to office, and to bring in a hard copy during the appointment. documented in this encounter Plan of Treatment Not on file documented as of this encounter Visit Diagnoses Not on filedocumented in this encounter Additional Health Concerns Assessment Noted Time PHQ-9 Depression Total Score: 13 021 2:22 PM EDT A Body Mass Index follow-up plan has been documented for the patient 01/24/2025 9:37 PM EDT PHQ-2 Depression Total Score: 0 01/20/20 25 5:52 PM EDT documented as of this encounter Care Teams Outside Sales Associate Relationship Specialty Start Date End Date Geovanny Hallman MD [address] [place] [address], 2nd [place] [address] PCP - General 04/25/17 documented as of this encounter Additional Source Comments The information contained in this document represents components of the legal health record. It is not the complete legal health record.[facility]
--- OUTSIDE RECORDS SUMMARY | 2025-03-25 10:03 | XMS_ITS | Encounter Summary ---
Author Organization [facility] Address [address] [place] [address] Phone Care Team Providers Care Hopper Operator Name Role Phone Geovanny Hallman MD Primary Care Provider [phone]- [phone] Encounter Details Date Type Department Care Team (Late st Contact Info) Description 03/02/2025 Orders Only [facility] [address] [place] [address] ProviderMaia MD [address] [place], [place] [id number] Social History Tobacco Use Types Packs/Day Years [...] high school, GED, job training, learning the Arabic language, technical skills, or developing parenting skills)? 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 Not on file Not on file documented as of this encounter Plan of Treatment Not on file documented as of this encounter Procedures Procedure Name Priority Date/Time Associated Diagnosis Comments OUTSIDE IMAGING Routine 03/01/2025 9:08 AM EST documented in this encounter Results * Outside Imaging Report Only (03/01/2025 9:08 AM EST) us Historical Provider MD SIMPSON XR CHEST Edited Re sult - Final documented in this encounter Visit Diagnoses Not on filedocumented in this encounter Additional Health Concerns Assessment Noted Time PHQ-9 Depression Total Score: 13 021 2:22 PM EDT A Body Mass Index follow-up plan has been documented for the patient 01/24/2025 9:37 PM EDT PHQ-2 Depression Total Score: 0 01/20/20 25 5:52 PM EDT documented as of this encounter Care Teams Hopper Operator Relationship Specialty Start Date End Date Geovanny Hallman MD [address] [place] [address], [address] [place] [address] [email or web address] PCP - General 04/25/17 documented as of this encounter Additional Source Comments The information contained in this document represents components of the legal health record. It is not the complete legal health record.[facility]
--- OUTSIDE RECORDS SUMMARY | 2025-03-25 10:03 | XMS_ITS | Clinical Summary ---
Author Organization [facility] Address [address] [address] Phone Care Team Providers Care Strategy Associate Name Role Phone Geovanny Hallman MD Primary Care Provider [phone] Allergies Active Allergy Reactions Criticality Noted Date [...] EVERY DAY 90 capsule 3 05/18/2022 Active naproxen (NAPROSYN) 500 MG tablet Take 500 mg by mouth 2 (two) times a day with meals. 03/01/2025 Active oxyCODONE (OXY-IR) 5 mg capsule 03/01/2025 Active tamsulosin (FLOMAX) 0.4 mg Cap 03/01/2025 Active Active Problems Problem Noted Date Diagnosed Date Elevated BP without diagnosis of hypertension Assessment & Plan (03/06/2025 6:32 PM EST): His blood pressure is elevated today. We discussed that this could be secondary to pain. Will continue to monitor. Assessment & Plan (01/24/2025 9:37 PM EDT): [...] EDT): He would like to see a veterinary bacteriologist to discuss his diet. He was given [...] Encounters Date Type Department Care Team Description 03/05/2025 3:30 PM EST Office Visit [facility] [address] [place] [address] [place] [address] Geovanny Hallman MD Right kidney mass (Primary Dx); Kidney stone; Calculus of gallbladder without cholecystitis without obstruction; Elevated BP without diagnosis of hypertension 03/02/2025 Telephone [facility] [address] [place] [address] Geovanny Hallman MD Appointment (ER follow up) 03/02/2025 Orders Only [facility] [address] [place] [address] ProviderMaia MD 01/20/2025 4:00 PM EDT Office Visit [facility] [address] [place] [address] [place] [address] Geovanny Hallman MD Encounter for general adult [...] disease Father Heart attack Father x3, 1st [place] befor e 50 Hypertension Father Sleep apnea [...] high school, GED, job training, learning the Belarusian language, technical skills, or developing parenting skills)? 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 file Not on file Last Filed Vital Signs Vital Sign Reading Time Taken Comments Blood Pressure 142/100 03/05/2025 3:57 PM EST Pulse 82 03/05/2025 3:57 PM EST Temperature 36.3 C (97.4 F) 01/20/2025 4:10 PM EDT Respiratory Rate - - Oxygen Saturation 98% 03/05/2025 3:57 PM EST Inhaled Oxygen Concentration - - Weight 116.1 kg (256 lb) 03/05/2025 3:57 PM EST Height 175.3 cm (5' 9 ) 03/05/2025 3:57 PM EST Body Mass Index 37.8 03/05/2025 3:57 PM EST Plan of Treatment Health Maintenance [...] STATUS SCREENING (Once After 26 Yrs) Completed 03/05/2025 HEPATITIS A VACCINES Aged Out No long [...] OUTSIDE IMAGING Routine 03/01/2025 9:08 AM EST LIPID PANEL Routine 10/07/2024 7:21 AM EDT Elevated BP without diagnosis of hypertension from Last 3 Months or Most Recently Relevant to Health Maintenance Results * Outside Imaging Report Only (03/01/2025 9:08 AM EST) us Historical Provider MD SIMPSON XR CHEST Edited Re sult - Final * (ABNORMAL) Lipid panel (10/07/2024 7:21 AM EDT) HDL 54 mg/dL [facility] Comment: Interpretation <40 mg/dL: Low HDL cholesterol (major risk factor for CHD) Greater than or equal to 60 mg/dL: High HDL cholesterol ( negative risk factor for CHD) HDL - cholesterol is affected by a number of factors, e.g. smoking, excerise, hormones, sex and age. CHOLESTEROL 169 0 - 240 mg/dL [facility] TRIGLYCERIDES 162(H) 30 - 160 mg/dL [facility] LDL 83 50 - 129 mg/dL [facility] Comment: LDL levels in terms of risk for coronary heart disease: <100 mg/dL: Optimal 100-129 mg/dL: Near or above optimal 130-159 mg/dL: Borderline high 160-189 mg/dL: High >190 mg/dL: Very High CARDIAC RISK RATIO 3.1(L) 3.4 - 5.0 C [facility] Blood 10/07/2024 7:21 AM EDT 10/07/2024 7:28 AM EDT us Geovanny Hallman MD LAB BLOOD BKR ORDERABLES Fi nal Result [facility] [address] [place] [address] from Last 3 Months or Most Recently Relevant to Health Maintenance Insurance [facility] Member Subscriber Plan / Payer (Ef fective 2024-Present) Name:Henri Waggoner Relation to Subscriber:Self Name:Henri Waggoner Payer ID:[id number] (NAIC) Type:POS Address: [address] Care Teams Strategy Associate Relationship Specialty Start Date End Date Geovanny Hallman MD [address] [place] [address], 2[address] [place] [address] [email or web address] PCP - General 04/25/17 Additional Source Comments The information contained in this document represents components of the legal health record. It is not the complete legal health record.[facility]
[2025-03-25 10:27] LABS: Calcium 10.1 mg/dL (8.4-10.2); Magnesium 2.2 mg/dL (1.6-2.6); Uric Acid 7.9 mg/dL (3.4-7.0)
[2025-03-25 10:28] LABS: Parathyroid Hormone Intact 108.8 pg/mL (8.7-77.1)
== END 2025-03-25 09:11 | disposition home or self-care (01) ==
LOC: HO.LAB 09:10
PROVIDERS: PCP Internal Medicine; Visit Provider Urology
DX: N20.0 Calculus of kidney (principal); Z13.21 Encounter for screening for nutritional disorder
CPT/HCPCS: 36415; 82306; 82310; 83735; 83970; 84100; 84550

== ENCOUNTER 2025-04-06 14:00 | Outpatient (REF) | payer OTHER, SELFPAY ==
--- NOTE | ~2025-04-06 | CT_ITS ---
EXAMINATION: CT ABDOMEN AND PELVIS WITHOUT AND WITH CONTRAST CLINICAL INFORMATION: C64.9. Malignant neoplasm of unspecified kidney. COMPARISON: March 01, 2025 TECHNIQUE: Multidetector volumetric imaging was performed of the abdomen and pelvis before and after the IV administration of 85 mL of Omnipaque 350 strength intravenous contrast. Sagittal and coronal reformatted images were obtained on the technologist's workstation. No reported immediate complications. This CT examination was performed using dose optimization techniques as appropriate, variously including the following: *Automated exposure control *Adjustment of mA and/or kV according to patient size (this includes techniques or standardized protocols for targeted exams where dose is matched to indication/reason for exam; i.e. extremities or head) *Use of iterative reconstruction technique DLP: 1157 mGy-cm FINDINGS: LUNG BASES: No gross pulmonary nodules. No acute airspace disease. LIVER, GALLBLADDER, AND BILIARY TREE: Liver measures 19 cm. Decreased enhancement pattern. No enhancing lesion. Portal veins and hepatic veins are patent. Intrahepatic portion of the IVC is patent. Multiple polygonal shape intraluminal calcifications, gallbladder without pericholecystic fluid collection or gallbladder wall thickening. No distended gallbladder. No intrahepatic or extrahepatic biliary ductal dilatation. PANCREAS: No solid or cystic mass. No peripancreatic fluid collection. No main pancreatic ductal dilatation. SPLEEN: 9 cm. No solid or cystic mass. ADRENAL GLANDS: No nodular lesions. KIDNEYS AND URETERS: Right kidney: Nonobstructing 2 mm calculi. No enhancing mass. Normal enhancement of the renal parenchyma. Mild prominent pelvicalyceal system. Right ureter is normal. Left kidney: 75 x 81 x 69 mm heterogeneously enhancing mixed solid and cystic component exophytic mass with punctate calcifications centered in the upper pole midportion. No hydronephrosis. Main renal veins are patent. Main renal arteries are patent. BLADDER: Fluid-filled. GASTROINTESTINAL TRACT: Abundant stool. Collapsed appearance of the left hemicolon. Appendix is normal. No intestinal obstruction pattern. No pneumatosis intestinalis. No pneumoperitoneum. No ascites. ABDOMINAL WALL: Diabetes abdominal rectus muscles in the perihilar umbilical region. Small fat-containing umbilical hernia. LYMPH NODES: No specific prominent retroperitoneum and mesenteric lymph nodes. VASCULAR: No aneurysm or dissection, abdominal aorta. PELVIC VISCERA: Not enlarged. OSSEOUS STRUCTURES: No lytic or blastic lesions. Multilevel spondylosis, but upper lumbar spine. Bony pelvis is intact. Coxofemoral joints are intact. CT/CT abdomen pelvis wo/w IV con IMPRESSION: 75 x 81 x 69 mm heterogeneously enhancing mixed solid and cystic partially calcified exophytic mass, left kidney. Nonspecific prominent lymph nodes, mesenteric and retroperitoneum. No lytic or blastic lesions. Hepatomegaly and steatosis. Cholelithiasis. Nonobstructing nephrolithiasis, right kidney. Fat-containing umbilical hernia. Fleischner guidelines were followed. Electronically signed by: Leonardo Posey MD 04/06/2025 03:37 PM EST RP
[2025-04-06] MEDS: iohexoL 350 MG/ML 100 ML INFUS..BTL IV (15:17)
--- OUTSIDE RECORDS SUMMARY | 2025-04-06 18:11 | XMS_ITS | Encounter Summary ---
Author Organization [facility] Address [address] [place] [address] Phone Care Team Providers Care Social Work Coordinator Name Role Phone Geovanny Hallman MD Primary Care Provider [phone]- [phone] Reason for Visit * Reason Onset Date Comments Appointment 03/02/2025 ER follow up Encounter Details Date Type Department Care Team (Late st Contact Info) Description 03/02/2025 Telephone [facility] [address] [place] [address] Geovanny Hallman MD [address] [facility], [address]nd [place] [address] [email or web address] Appointment (ER follow up) Social History Tobacco [...] high school, GED, job training, learning the [place] language, technical skills, or developing parenting skills)? 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 2.Virtual or in-person appointment: In-Person 3.Information related to the patient ER/ED visit: A. Facility Name:? [facility] B. Date of ED Visit: 03/01/25 C. [...] documented as of this encounter Care Teams Social Work Coordinator Relationship Specialty Start Date End Date Geovanny Hallman MD [address] [place] [address], [address]nd [place] [address] PCP - General 04/25/17 documented as of this encounter Additional Source Comments The information contained in this document represents components of the legal health record. It is not the complete legal health record.[facility]
--- OUTSIDE RECORDS SUMMARY | 2025-04-06 18:11 | XMS_ITS | Encounter Summary ---
Author Organization [facility] Address [address] [place] [address] Phone Care Team Providers Care Columnist Name Role Phone Geovanny Hallman MD Primary Care Provider [phone]- [phone] Encounter Details Date Type Department Care Team (Late st Contact Info) Description 03/02/2025 Orders Only [facility] [address] [place] [address] Provider, MD Maia [address] [place], [place] [id number] Social History Tobacco Use Types Packs/Day Years [...] high school, GED, job training, learning the Yemeni language, technical skills, or developing parenting skills)? 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 PCP - General 04/25/17 documented as of this encounter Additional Source Comments The information contained in this document represents components of the legal health record. It is not the complete legal health record.[facility]
--- OUTSIDE RECORDS SUMMARY | 2025-04-06 18:11 | XMS_ITS | Encounter Summary ---
Author Organization [facility] Address [address] [place] [address] Phone Care Team Providers Care Student Accounts Coordinator Name Role Phone Geovanny Hallman MD Primary Care Provider +1- [phone] Encounter Details Date Type Department Care Team (Late st Contact Info) Description 03/30/[address] [facility] [address] [place] [address] [address] [place] [phone] Bryan Camacho RN [address] [place] [address] Social History Tobacco Use Types Packs/Day Years [...] high school, GED, job training, learning the Latvian language, technical skills, or developing parenting skills)? [...] as of this encounter Progress Notes * Baylee Izaguirre - 03/30/2025 3:43 PM EST Patient called and Lvm requesting to speak with someone regarding a missed call - please advise @[phone] * Elina Butler RN - 03/30/2025 1:37 PM EST Patient called regarding lab work. Reported to patient the lab work results and Dr. Hallman's recommendations. Patient reported that is being worked up for a renal cancer at this time. * Bryan Camacho RN - 03/30/2025 1:18 PM EST Images from the original note were not included. Geovanny Hallman MD P [facility] Rn Please let him know that I looked over his lab work from the urologist. His PTH is high and his vitamin D is low. We need to correct his vitamin D and recheck the PTH. I would like him to start 2000 IU of vitamin D3 and recheck the labs in 3 months. documented in this encounter Plan of Treatment [...] documented as of this encounter Care Teams Student Accounts Coordinator Relationship Specialty Start Date End Date Geovanny Hallman MD [address] [place] [address], 2nd [place] [address] [email or web address] PCP - General 04/25/17 documented as of this encounter Additional Source Comments The information contained in this document represents components of the legal health record. It is not the complete legal health record.[facility]
--- OUTSIDE RECORDS SUMMARY | 2025-04-06 18:11 | XMS_ITS | Encounter Summary ---
Author Organization [facility] Address [address] [place] [address] Phone Care Team Providers Care Conference Manager Name Role Phone Geovanny Hallman MD Primary Care Provider [phone]- [phone] Encounter Details Date Type Department Care Team (Late st Contact Info) Description 03/26/2025 Orders Only [facility] [address] [place] [address] Unknown, Unknown, Social History Tobacco Use Types Packs/Day Years [...] high school, GED, job training, learning the Surinamese language, technical skills, or developing parenting skills)? 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 Not on file Not on file documented as of this encounter Plan of Treatment Not on file documented as of this encounter Procedures Procedure Name Priority Date/Time Associated Diagnosis Comments OUTSIDE LAB Routine 03/25/2025 1:49 PM EST documented in this encounter Results * Outside Lab (Non-MGB) (03/25/2025 1:49 PM EST) us Unknown Unknown LAB BLOOD BKR ORDERABLES Edit ed Result - Final documented in this encounter Visit Diagnoses Not on filedocumented in this encounter Additional Health Concerns Assessment Noted Time PHQ-9 Depression Total Score: 13 021 2:22 PM EDT A Body Mass Index follow-up plan has been documented for the patient 01/24/2025 9:37 PM EDT PHQ-2 Depression Total Score: 0 01/20/20 25 5:52 PM EDT documented as of this encounter Care Teams Conference Manager Relationship Specialty Start Date End Date Geovanny Hallman MD [address] [place] [address], 2nd [place] [address] [email or web address] PCP - General 04/25/17 documented as of this encounter Additional Source Comments The information contained in this document represents components of the legal health record. It is not the complete legal health record.[facility]
--- OUTSIDE RECORDS SUMMARY | 2025-04-06 18:11 | XMS_ITS | Clinical Summary ---
Author Organization [facility] Address [address] [place] [address] Phone Care Team Providers Care Plant Technician Name Role Phone Geovanny Hallman MD Primary Care Provider Allergies Active Allergy Reactions Criticality Noted Date Comments Peanut 09/13/2023 Other 07/21/2018 Environmental allergies Tree Nut GI Upset,Hives,Itching,Swel ling,Throat Tightness Medium 10/05/2024 Medications omeprazole (PRILOSEC) 20 MG tablet 1 tablet Orally as needed Active loratadine (CLARITIN) 10 mg tablet Take 1 tablet by mouth as needed. Active FLUoxetine (PROZAC) 20 MG capsuleIndicatio ns:Suicidal ideation TAKE 1 CAPSULE BY MOUTH EVERY DAY 90 capsule 3 05/18/2022 Active naproxen (NAPROSYN) 500 MG tablet Take 500 mg by mouth 2 (two) times a day with meals. 03/01/2025 Active oxyCODONE (OXY-IR) 5 mg capsule 03/01/2025 Active tamsulosin (FLOMAX) 0.4 mg Cap 03/01/2025 Active cholecalciferol (VITAMIN D3) 2,000 unit capsuleIndicatio ns:Vitamin D deficiency, unspecified Take 1 capsule (2,000 Units total) by mouth daily. 90 capsule 3 03/30/2025 Active Active Problems Problem Noted Date Diagnosed [...] EDT): He would like to see a sales representative sales manager to discuss his diet. He was given [...] Encounters Date Type Department Care Team Description 03/30/[address] [place] [address] Bryan Camacho RN 03/30/2025 Orders Only [address] [place] [address] Geovanny Hallman MD Hyperparathyroidism, unspecified (Primary Dx); Vitamin D deficiency, unspecified 03/26/2025 Orders Only [facility] [address] [place] [address] Unknown, Krystle, 03/05/2025 3:30 PM EST Office Visit [address] [place] [address] Geovanny Hallman MD Right kidney mass (Primary Dx); Kidney stone; Calculus of gallbladder without cholecystitis without obstruction; Elevated BP without diagnosis of hypertension 03/02/2025 Telephone [facility] [address] [place] [address] Geovanny Hallman MD Appointment (ER follow up) 03/02/2025 Orders Only [facility] [address] [place] [address] ProviderMaia MD 01/20/2025 4:00 PM EDT Office Visit [address] [place] [address] Geovanny Hallman MD Encounter for general adult [...] disease Father Heart attack Father x3, 1st [place] befor e 50 Hypertension Father Sleep apnea [...] high school, GED, job training, learning the Dutch language, technical skills, or developing parenting skills)? 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 file [...] OUTSIDE LAB Routine 03/25/2025 1:49 PM EST OUTSIDE IMAGING Routine 03/01/2025 9:08 AM EST LIPID PANEL Routine 10/07/2024 7:21 AM EDT Elevated BP without diagnosis of hypertension from Last 3 Months or Most Recently Relevant to Health Maintenance Results * Outside Lab (Non-MGB) (03/25/2025 1:49 PM EST) us Unknown Unknown MD LAB BLOOD BKR ORDERABLES Edit ed Result - Final * Outside Imaging Report Only (03/01/2025 9:08 AM EST) us Historical Provider IMG XR CHEST Edited Re sult - Final * (ABNORMAL) Lipid panel (10/07/2024 7:21 AM EDT) HDL 54 mg/dL [facility] Comment: Interpretation <40 mg/dL: Low HDL cholesterol (major risk factor for CHD) Greater than or equal to 60 mg/dL: High HDL cholesterol ( negative risk factor for CHD) HDL - cholesterol is affected by a number of factors, e.g. smoking, excerise, hormones, sex and age. CHOLESTEROL 169 0 - 240 mg/dL [facility] TRIGLYCERIDES 162(H) 30 - 160 mg/dL [facility] LDL 83 50 - 129 mg/dL [facility] Comment: LDL levels in terms of risk for coronary heart disease: <100 mg/dL: Optimal 100-129 mg/dL: Near or above optimal 130-159 mg/dL: Borderline high 160-189 mg/dL: High >190 mg/dL: Very High CARDIAC RISK RATIO 3.1(L) 3.4 - 5.0 C [facility] Blood 10/07/2024 7:21 AM EDT 10/07/2024 7:28 AM EDT Geovanny Hallman MD LAB BLOOD BKR ORDERABLES Fi nal Result Performing Organization Address City/State/[facility] Co de Phone Number [facility] [address] [place] [address] from Last 3 Months or Most Recently Relevant to Health Maintenance Insurance [facility] Care Teams Plant Technician Relationship Specialty Start Date End Date Geovanny Hallman MD [address] [place] [address], 2nd [place] [address] [email or web address] PCP - General 04/25/17 Additional Source Comments The information contained in this document represents components of the legal health record. It is not the complete legal health record.[facility]
--- OUTSIDE RECORDS SUMMARY | 2025-04-06 18:11 | XMS_ITS | Encounter Summary ---
Author Organization [facility] Address [address] [facility] [address] [place] [address] Phone Care Team Providers Care Hide Measuring Machine Operator Name Role Phone Geovanny Hallman MD Primary Care Provider +1- [phone] Encounter Details Date Type Department Care Team (Late st Contact Info) Description 03/30/2025 Orders Only [facility] [address] [place] [address] [address] [place] [id number] Geovanny Hallman MD [address] [place] [address], 2nd [place] [address] [email or web address] Hyperparathyroidism, unspecified (Primary Dx); Vitamin D deficiency, unspecified Social History Tobacco Use Types Packs/Day Years [...] high school, GED, job training, learning the Greek language, technical skills, or developing parenting skills)? 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 on file Not on file documented as of this encounter Plan of Treatment Scheduled Orders Name Type Priority Associated Diagnoses Orde r Schedule 25-OH Vitamin D Lab Routine Hyperparathyroidism, unspecified Vitamin D deficiency, unspecified Expected: 06/28/2025 (Approximate), Expires: 12/29/2025 Parathyroid Hormone (PTH) Lab Routine Hyperparathyroidism, unspecified Vitamin D deficiency, unspecified Expected: 06/28/2025 (Approximate), Expires: 12/29/2025 documented as of this encounter Visit Diagnoses Diagnosis Hyperparathyroidism, unspecified- Primary Vitamin D deficiency, unspecified documented in this encounter Additional Health Concerns Assessment Noted Time PHQ-9 Depression Total Score: 13 021 2:22 PM EDT A Body Mass Index follow-up plan has been documented for the patient 01/24/2025 9:37 PM EDT PHQ-2 Depression Total Score: 0 01/20/20 25 5:52 PM EDT documented as of this encounter Care Teams Hide Measuring Machine Operator Relationship Specialty Start Date End Date Geovanny Hallman MD [address] [place] [address], 2nd [place] [address] [email or web address] PCP - General 04/25/17 documented as of this encounter Additional Source Comments The information contained in this document represents components of the legal health record. It is not the complete legal health record.[facility]
== END 2025-04-06 14:01 | disposition home or self-care (01) ==
LOC: HO.CT 14:00
PROVIDERS: PCP Internal Medicine; Visit Provider Urology
DX: C64.9 Malignant neoplasm of unspecified kidney, except renal pelvis (principal)
CPT/HCPCS: 74178; Q9967

== ENCOUNTER → 2025-04-06 14:01 | Outpatient (BNV) | payer OTHER, SELFPAY | PROVIDERS: PCP Internal Medicine; Visit Provider Radiology Diagnostic Radiology | DX: K80.20 Calculus of gallbladder without cholecystitis without obstruction (principal); N20.0 Calculus of kidney; K42.9 Umbilical hernia without obstruction or gangrene; K76.0 Fatty (change of) liver, not elsewhere classified; R16.0 Hepatomegaly, not elsewhere classified | CPT/HCPCS: 74178 ==

== ENCOUNTER 2025-04-08 13:54 | Outpatient (AMB) | payer OTHER, SELFPAY ==
--- NOTE | 2025-04-08 14:05 | MHC.OFFVIS ---
Intake Visit Reasons: 4w CT Labs follow up SET UA Intake Note: Reason for Visit: CT Scan Follow Up Urology Meds: None Blood Thinners: None Labs: BUN: 9 Creatinine: 0.80(03/01/25) Imaging: Abd/Pel CT 03/01/25 Last PVR: None Sizer Hand Required: No Accompanied by: Self / Same As Patient Allergies environmental allergies Allergy (Verified 04/08/25 14:06) Sneezing nut - unspecified Allergy (Verified 04/08/25 14:06) Hives HPI Comments Details: Henri is a pleasant male. He is a patient of Dr. Hallman. He is seen for the following urologic conditions - nephrolithiasis - renal mass Printed information provided of contrast-enhanced study Confirm renal cancer Based on position of renal vessels probability of performing partial nephrectomy low Refer to Dr. Rolan Mills for assessment of partial versus total nephrectomy Plan chest CT Follow-up 6 weeks tele Probable renal cancer Incidental finding during evaluation for kidney stones CT - Left kidney reveals a heterogeneous solid-appearing and partially calcified upper pole lesion measuring up to 7.9 cm AP dimension (4; 357), and 5.8 cm craniocaudad dimension (6; 58) - 75 x 81 x 69 mm heterogeneously enhancing mixed solid and cystic component exophytic mass with punctate calcifications centered in the upper pole midportion No family history of significant consequence Nephrolithiasis Elevated calcium Distal right ureteric stone Grandmother has stone PFSH Medical History Gallstone Testicular torsion Family History Father Throat cancer Social History Alcohol intake: current Alcohol intake frequency: holidays/special occasions only Alcohol type: beer Patient Tobacco Use Status: Never used Tobacco Review of Systems Const Denies chills and Denies fever(s) Card Reports no additional complaints and Denies syncope Resp Denies cough GI Denies abdominal pain and Denies heartburn Reports as per HPI and Denies change in libido Neuro Denies syncope Psych Denies change in libido Endo Denies change in libido Physical Exam Const General: cooperative, healthy appearing, comfortable and no acute distress Orientation/consciousness: patient oriented x3 HEENT Face and sinus: Yes normal facial exam Mouth: moist mucous membranes Neck Neck: Yes normal visual inspection, Yes full ROM and Yes trachea midline Chest Chest palpation & inspection: normal inspection of the chest Resp Effort & Inspection: normal respiratory effort, able to speak in complete sentences and no respiratory distress GI Inspection: Yes normal to inspection Back/Spine/Pelvis Cervical Spine: normal cervical lordosis Thoracic/Lumbar Spine: thoracic and lumbar spine normal to inspection Skin General skin exam: no rashes or lesions noted Neuro General: patient oriented x3, gait normal, tone normal and moves all extremities Extrem General: Yes normal to inspection and Yes capillary refill normal Assessment & Plan Assessment & Plan (1) Renal cancer: Code(s): C64.9 - Malignant neoplasm of unspecified kidney, except renal pelvis Category: Medical (2) Nephrolithiasis: Code(s): N20.0 - Calculus of kidney Category: Medical Plan Six week follow-up Chest CT Orders: Orders CT chest wo IV con Today C64.9 - Malignant neoplasm of unspecified kidney, except renal pelvis Referrals Urology Referral C64.9 - Malignant neoplasm of unspecified kidney, except renal pelvis Patient Instructions: This note is constructed using voice recognition software. While every effort has been made to ensure accuracy watch dial maker errors may have been included. Imaging studies, laboratory and physical exam results were discussed and reviewed in detail. No major barriers to patient understanding were identified. An opportunity to ask questions regarding the treatment plan was provided. All questions were answered. The patient expressed understanding and agreement with the above treatment plan. The patient is aware they should contact our office by phone for worsening of their current condition or the appearance of new urologic symptoms. Compliance is encouraged with any medications and followup testing that is ordered. It is a privilege to participate in the urologic care of your patient. If you have any questions or concerns regarding treatment for the above conditions, or other urologic issues, please do not hesitate to contact me. The office telephone contact is [phone]. Sincerely, Dr Brendan Cobos MD, [facility] - Urology Compassionate Specialist Care for the Genitourinary System Coding Level of Care Code Est Pt Level 4 (53517) Diagnoses Renal cancer C64.9 Nephrolithiasis N20.0
--- OUTSIDE RECORDS SUMMARY | 2025-04-08 18:10 | XMS_ITS | Encounter Summary ---
Author Organization [facility] Address [address] [place] [address] Phone Care Team Providers Care Memorial Marker Designer Name Role Phone Geovanny Hallman MD Primary Care Provider [phone]- [phone] Encounter Details Date Type Department Care Team (Late st Contact Info) Description 03/30/2025 Orders Only [facility] [address] [place] [address] Dr [place] [id number] Geovanny Hallman MD [address] [place] [address], [address] [place] [address] [email or web address] Hyperparathyroidism, unspecified (Primary Dx); Vitamin D deficiency, [...] high school, GED, job training, learning the Albanian language, technical skills, or developing parenting skills)? 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 It is not the complete legal health record.[facility]
--- OUTSIDE RECORDS SUMMARY | 2025-04-08 18:10 | XMS_ITS | Encounter Summary ---
Author Organization [facility] Address [address] [place] [address] Phone Care Team Providers Care Refrigeration Houseman Name Role Phone Geovanny Hallman MD Primary Care Provider +1- [phone] Encounter Details Date Type Department Care Team (Late st Contact Info) Description 03/26/2025 Orders Only [facility] [address] [place] [address] Unknown, Unknown, Social History Tobacco Use Types [...] high school, GED, job training, learning the Zimbabwean language, technical skills, or developing parenting skills)? 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 It is not the complete legal health record.[facility]
--- OUTSIDE RECORDS SUMMARY | 2025-04-08 18:10 | XMS_ITS | Encounter Summary ---
Author Organization [facility] Address [address] [place] [address] Phone Care Team Providers Care Mutuel Teller Name Role Phone Geovanny Hallman MD Primary Care Provider +1- [phone] Encounter Details Date Type Department Care Team (Late st Contact Info) Description 03/30/2025 Telephone [facility] [address] [place] [address] Dr [place] [id number] Bryan Camacho RN [address] [place] [address] Social History Tobacco Use Types Packs/Day Years [...] high school, GED, job training, learning the Ivorian language, technical skills, or developing parenting skills)? 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 Reported to patient the lab work results and Dr. Hallman's recommendations. Patient reported that is being worked up for a renal cancer at this time. * Bryan Camacho RN - 03/30/2025 1:18 PM EST Images from the original note were not included. Geovanny Hallman MD P [facility] Rn Please let him know that I [...] documented as of this encounter Care Teams Mutuel Teller Relationship Specialty Start Date End Date Geovanny Hallman MD [address] [place] [address], [address] [place] [address] [email or web address] PCP - General 04/25/17 documented as of this encounter Additional Source Comments The information contained in this document represents components of the legal health record. It is not the complete legal health record.[facility]
--- OUTSIDE RECORDS SUMMARY | 2025-04-08 18:10 | XMS_ITS | Encounter Summary ---
Author Organization [facility] Address [address] [place] [phone] Phone Care Team Providers Care Wood Preserving Plant Laborer Name Role Phone Geovanny Hallman MD Primary Care Provider [phone]- [phone] Reason for Referral * MRI/CAT Scan - Closed Specialty Diagnoses / Procedures Referred By Contac t Referred To Contact Radiology Procedures Outside CT Abd/pelvis Report Only Unknown, Krystle, Referral ID Status Reason Start Date Expiration Date Visits Re quested Visits Authorized Closed 04/07/2025 1 1 Encounter Details Date Type Department Care Team (Late st Contact Info) Description 04/07/2025 Orders Only [facility] [address] [place] [address] Unknown, Krystle, Social History Tobacco Use Types Packs/Day Years [...] high school, GED, job training, learning the Macanese language, technical skills, or developing parenting skills)? 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 Not on file Not on file documented as of this encounter Plan of Treatment Not on file documented as of this encounter Procedures Procedure Name Priority Date/Time Associated Diagnosis Comments OUTSIDE CT ABD/PELVIS REPORT ONLY Routine 04/06/2025 11:46 AM EST OUTSIDE IMAGING Routine 04/06/2025 11:43 AM EST documented in this encounter Results * Outside CT Abd/pelvis Report Only (04/06/2025 11:46 AM EST) us Unknown Unknown MD SIMPSON CT ABD/PELVIS Final Resul t * Outside Imaging Report Only (04/06/2025 11:43 AM EST) us Unknown Unknown MD SIMPSON XR CHEST Final Result documented in this encounter Visit Diagnoses Not on filedocumented in this encounter Additional Health Concerns Assessment Noted Time PHQ-9 Depression Total Score: 13 021 2:22 PM EDT A Body Mass Index follow-up plan has been documented for the patient 01/24/2025 9:37 PM EDT PHQ-2 Depression Total Score: 0 01/20/20 25 5:52 PM EDT documented as of this encounter Care Teams Wood Preserving Plant Laborer Relationship Specialty Start Date End Date Geovanny Hallman MD [address] [place] [address], [address] [place] [address] [email or web address] PCP - General 04/25/17 documented as of this encounter Additional Source Comments The information contained in this document represents components of the legal health record. It is not the complete legal health record.[facility]
--- OUTSIDE RECORDS SUMMARY | 2025-04-08 18:10 | XMS_ITS | Clinical Summary ---
Author Organization [facility] Address [address] [place] [address] Phone Care Team Providers Care Salvage Repairer Name Role Phone Geovanny Hallman MD Primary [...] EDT): He would like to see a depalletizer operator to discuss his diet. He was given [...] Encounters Date Type Department Care Team Description 04/07/2025 Orders Only [facility] [address] [place] [address] Unknown, MD Krystle 03/30/[address] [place] [address] Bryan Camacho RN 03/30/2025 Orders Only [address] [place] [address] Geovanny Hallman MD Hyperparathyroidism, unspecified (Primary Dx); Vitamin D deficiency, unspecified 03/26/2025 Orders Only [facility] [address] [place] [address] Unknown, Krystle, 03/05/2025 3:30 PM EST Office Visit [address] [place] [address] Geovanny Hallman MD Right kidney mass (Primary Dx); Kidney stone; Calculus of gallbladder without cholecystitis without obstruction; Elevated BP without diagnosis of hypertension 03/02/2025 Telephone [facility] [address] [place] [address] Geovanny Hallman MD Appointment (ER follow up) 03/02/2025 Orders Only [facility] [address] [place] [address] ProviderMaia MD 01/20/2025 4:00 PM EDT Office Visit [address] [place] [address] Geovanny Hallman MD Encounter for general adult [...] disease Father Heart attack Father x3, 1st [place] befor e 50 Hypertension Father Sleep apnea [...] high school, GED, job training, learning the Greenlandic language, technical skills, or developing parenting skills)? 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 Not on file [...] OUTSIDE IMAGING Routine 04/06/2025 11:43 AM EST OUTSIDE LAB Routine 03/25/2025 1:49 PM EST OUTSIDE IMAGING Routine 03/01/2025 9:08 AM EST LIPID PANEL Routine 10/07/2024 7:21 AM EDT Elevated BP without diagnosis of hypertension from Last 3 Months or Most Recently Relevant to Health Maintenance Results * Outside CT Abd/pelvis Report Only (04/06/2025 11:46 AM EST) us Unknown Unknown MD IMG CT ABD/PELVIS Final Resul t * Outside Imaging Report Only (04/06/2025 11:43 AM EST) us Unknown Unknown IMG XR CHEST Final Result * Outside Lab (Non-MGB) (03/25/2025 1:49 PM EST) us Unknown Unknown LAB BLOOD BKR ORDERABLES Edit ed Result - Final * Outside Imaging Report Only (03/01/2025 9:08 AM EST) us Historical Provider MD SIMPSON XR CHEST Edited Re sult - Final * (ABNORMAL) Lipid panel (10/07/2024 7:21 AM EDT) HDL 54 mg/dL [facility] Comment: Interpretation <40 mg/dL: Low HDL cholesterol (major risk factor for CHD) Greater than or equal to 60 mg/dL: High HDL cholesterol ( negative risk factor for CHD) HDL - cholesterol is affected by a number of factors, e.g. smoking, excerise, hormones, sex and age. CHOLESTEROL 169 0 - 240 mg/dL [facility] TRIGLYCERIDES 162(H) 30 - 160 mg/dL [facility] LDL 83 50 - 129 mg/dL [facility] Comment: LDL levels in terms of risk for coronary heart disease: <100 mg/dL: Optimal 100-129 mg/dL: Near or above optimal 130-159 mg/dL: Borderline high 160-189 mg/dL: High >190 mg/dL: Very High CARDIAC RISK RATIO 3.1(L) 3.4 - 5.0 C [facility] Blood 10/07/2024 7:21 AM EDT 10/07/2024 7:28 AM EDT Geovanny Hallman MD LAB BLOOD BKR ORDERABLES Fi nal Result [address] [address] from Last 3 Months or Most Recently Relevant to Health Maintenance Insurance [facility] Care Teams Salvage Repairer Relationship Specialty Start Date End Date Geovanny Hallman MD [address] [place] [address], [address] [place] [address] [email or web address] PCP - General 04/25/17 Additional Source Comments The information contained in this document represents components of the legal health record. It is not the complete legal health record.[facility]
--- OUTSIDE RECORDS SUMMARY | 2025-04-08 18:10 | XMS_ITS | Encounter Summary ---
Author Organization [facility] Address [address] [place] [address] Phone Care Team Providers Care Utilization Coordinator Name Role Phone Geovanny Hallman MD Primary Care Provider +1- [phone] Reason for Visit * Reason Onset Date Comments Appointment 03/02/2025 ER follow up Encounter Details Date Type Department Care Team (Late st Contact Info) Description 03/02/[address] [facility] [address] [place] [address] Geovanny Hallman MD [address], [address]nd [place] [address] [email or web address] Appointment (ER follow up) Social History Tobacco [...] high school, GED, job training, learning the Luxembourger language, technical skills, or developing parenting skills)? 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 2.Virtual or in-person appointment: In-Person 3.Information related to the patient ER/ED visit: A. Facility Name:? [facility] B. Date of ED Visit: [...] documented as of this encounter Care Teams Utilization Coordinator Relationship Specialty Start Date End Date Geovanny Hallman MD [address] [place] [address], [address] [place] [address] PCP - General 04/25/17 documented as of this encounter Additional Source Comments The information contained in this document represents components of the legal health record. It is not the complete legal health record.[facility]
== END 2025-04-08 14:36 | disposition home or self-care (01) ==
LOC: HO.HUSH 13:54
PROVIDERS: PCP Internal Medicine; Visit Provider Urology
DX: C64.9 Malignant neoplasm of unspecified kidney, except renal pelvis (principal); N20.0 Calculus of kidney
CPT/HCPCS: 99214